=== PATIENT | male | born 1950 | race Caucasian/White ===

== ENCOUNTER → 2023-07-25 07:59 | Outpatient (REF) | payer MEDICARE, OTHER, SELFPAY ==
[2023-07-25 08:46] LABS: % Basophils 1.1 % (0-2); % Eosinophils 6.9 % (0-6); % Immature Granulocytes 0.5 % (0-0.5); % Lymphocytes 27.4 % (20.5-51.1); % Monocytes 9.5 % (1.7-9.3); % Neutrophils 54.6 % (42.2-75.2); Absolute Basophils 0.1 10^3/uL (0-0.2); Absolute Eosinophils 0.5 10^3/uL (0-0.7); Absolute Lymphocytes 1.8 10^3/uL (1.2-3.4); Absolute Monocytes 0.6 10^3/uL (0.1-0.6); Absolute Neutrophils 3.6 10^3/uL (1.4-6.5); Hematocrit 38.1 % (39.0-52.0); Hemoglobin 12.9 g/dL (13.0-18.0); Mean Corp Hgb Conc. 33.9 g/dL (33.0-37.0); Mean Corpuscular Hgb 29.5 pg (27.0-31.0); Mean Platelet Volume 10.3 fL (7.4-10.4); Nucleated Red Blood Cells % 0 % (-); Platelet Count 311 10^3/uL (130-400); Red Blood Cell Count 4.38 10^6/uL (4.70-6.10); White Blood Cell Count 6.5 10^3/uL (4.8-10.8)
[2023-07-25 17:42] LABS: Lyme Antibody Screen, EIA Negative (Negative)
== END ==
LOC: REG 07:59
PROVIDERS: ATTENDING PHYSICIAN Family Medicine; FAMILY PHYSICIAN Family Medicine
DX: A69.20 Lyme disease, unspecified (principal); R73.01 Impaired fasting glucose
CPT/HCPCS: 36415; 83036; 85025; 86618

== ENCOUNTER → 2023-07-29 07:07 | Outpatient (REF) | payer MEDICARE, OTHER, SELFPAY ==
[2023-07-29 08:53] LABS: Iron 132 ug/dl (49-181)
[2023-07-29 09:03] LABS: Percent Saturation 28 % (20-50); Total Iron Binding Capacity 458 ug/dl (261-462)
[2023-07-29 09:44] LABS: Folate 7.7 ng/ml (2.76-20)
== END ==
LOC: REG 07:07
PROVIDERS: ATTENDING PHYSICIAN Family Medicine
DX: D50.9 Iron deficiency anemia, unspecified (principal); E53.8 Deficiency of other specified B group vitamins
CPT/HCPCS: 36415; 82728; 82746; 83540; 83550

== ENCOUNTER 2023-08-14 06:30 | Day surgery (SDC) | payer MEDICARE, OTHER, SELFPAY ==
[2023-08-14] VITALS (18 sets, daily range): BP systolic 109–175; BP diastolic 54–89; BMI 27.1
[2023-08-14] MEDS: NSS 242 ML IV (07:10)
[2023-08-14] MEDS: LOW STRENGTH ASPIRIN 324 MG PO (07:11)
[2023-08-14 08:13] LABS: ALT (SGPT) 33 U/L (0-50); AST (SGOT) 42 U/L (17-59); Albumin 4.1 g/dl (3.5-5.0); Alkaline Phosphatase 89 U/L (38-126); Blood Urea Nitrogen 15 mg/dl (9-20); Carbon Dioxide 27 mmol/L (22-30); Chloride 105 mmol/L (98-107); Estimated Creatinine Clearance 63 ml/min; Glucose 104 mg/dl (70-99); Potassium 4.4 mmol/L (3.5-5.1); Sodium 136 mmol/L (135-145); Total Bilirubin 0.6 mg/dl (0.2-1.3); Total Protein 6.4 g/dl (6.3-8.2); eGFR > 60.00
[2023-08-14 08:59] LABS: ACT-LR - POC 223 Seconds (116-155)
[2023-08-14 09:09] LABS: ACT-LR - POC 263 Seconds (116-155)
[2023-08-14 09:29] LABS: ACT-LR - POC 284 Seconds (116-155)
--- NOTE | 2023-08-14 10:01 | ITS.CL.CATH ---
[employer] - Catheterization
Cardiac Catheterization
Procedure Report:
LEFT HEART CATHETERIZATION AND CORONARY INTERVENTION
Date of Procedure: August 14, 2023
Referring: Demarcus Kelly
PROCEDURES:
1. Left heart catheterization, coronary angiogram.
2. Ultrasound-guided access.
3. Successful IVUS guided percutaneous coronary intervention to diffuse 60 to 70% IFR positive mid LAD in-stent restenosis with a 2.5 x 38 mm Xience hallie point drug-eluting stent, postdilated using a 2.75 x 20 mm NC balloon at 18 era with an
excellent angiographic and IVUS based result.
4. Physiologic testing using IFR of mid LAD
INDICATION: [ ]
ACCESS: Right radial artery, 6 [place] sheath, under ultrasound guidance
HEMODYNAMICS : (mmHg)
AO (s/d) : 126/63, mean of 92
LV (s/d) : 135/4
LVEDP :18
CORONARY FINDINGS
DOMINANCE: Right
LEFT MAIN: The left main is a large-caliber vessel which gives rise to a left anterior descending artery on the left circumflex artery. There is minimal luminal irregularities.
LEFT ANTERIOR DESCENDING: The left anterior descending artery is a medium caliber vessel which gives rise to 3 major diagonal branches. The mid LAD stent has diffuse 50 to 60% stenosis which is IFR positive as noted below at 0.85. D2 has an ostial
70 to 80% stenosis with 40 to 50% stenosis in the proximal portion.
CIRCUMFLEX: The left circumflex artery is a medium caliber vessel which gives rise to 2 small to medium caliber obtuse marginal branches. There is minimal luminal irregularities.
RIGHT CORONARY ARTERY: The right coronary artery is a large-caliber, dominant vessel which gives rise to the right posterior descending artery and the right posterolateral system. There is diffuse up to 40-50% plaque in the mid RCA.
HEMODYNAMIC ASSESSMENT OF THE MID LAD WITH A [employer] VERRATA WIRE: The origin of the left coronary artery was cannulated with a 6 Fr EBU 3.5 guide catheter. Intravenous heparin was administered and the ACT was followed during the procedure. Two
hundred micrograms of intracoronary nitroglycerin was given through the guide catheter. A [employer] Verrata wire was advanced to the left main and normalized in the left main. The Verrata wire was then carefully manipulated across the stenosis in
the mid LAD with the iFR below the ischemic threshold serially measuring 0.85, 0.85 and 0.86. The Verrata wire was then pulled back to the left main where the Pd/Pa measured 1.0 confirming no baseline drift in pressure readings
CORONARY INTERVENTION: Decision was made to move forward with percutaneous intervention given positive IFR is likely cause of patient's ongoing exertional typical angina. Additional heparin was given to maintain a therapeutic ACT throughout the
case. The same Verrata wire was advanced back into the distal LAD. The mid LAD was predilated using a 2.5 x 20 mm semi-compliant balloon at 14 era with good expansion. The lesion was then stented using a 2.5 x 38 mm Xience [place] drug-eluting
stent and postdilated using a 2.75 x 20 mm NC balloon at 16 era distally and 18 era proximally with an excellent angiographic result. IVUS [place] eye catheter was then advanced which showed a well-expanded and well apposed stent with out evidence of
any stent edge dissections. Patient was loaded with 600 mg of Plavix at the end of the case. No acute complications were noted.
SEDATION: 102 minutes of procedural sedation was utilized. An independent medical delivery technician was present to assist with and help manage the patient's level of consciousness and physiologic status.
RADIATION SUMMARY: Fluoro Time (min): 13.9, Dose (mGy): 604.81, DAP (Gy.cm2) : 45.3
Closure Device: Vascular band over right radial artery, 11 cc of air
CONCLUSIONS
1. Successful IVUS guided percutaneous coronary intervention to diffuse 60 to 70% IFR positive mid LAD in-stent restenosis with a 2.5 x 38 mm Xience hallie point drug-eluting stent, postdilated using a 2.75 x 20 mm NC balloon at 18 era with an
excellent angiographic and IVUS based result.
2. Diffuse up to 40-50% stenosis in the mid RCA
3. Mildly elevated LVEDP
RECOMMENDATIONS
1. Uninterrupted dual antiplatelet therapy with daily baby aspirin and Plavix for at least 1 year, continue beta-mindy and high intensity statin.
2. Wean radial band per protocol.
3. We will add amlodipine 5 mg daily for better blood pressure control and as a second antianginal medication.
4. Aggressive management of cardiovascular risk factors.
5. Outpatient referral for cardiac rehab.
Copy to: Demarcus Kelly
Yvette Newton MD, FACC, [facility]
[2023-08-14] MEDS: NSS 1000 IV (10:26)
[2023-08-14] MEDS: TYLENOL 650 MG PO (10:32)
[2023-08-14] MEDS: NORVASC 5 MG PO (12:38)
--- NOTE | 2023-08-14 16:03 | W.PN.UPDATE ---
Update Note
Progress Note Update
Pt seen post LAD PCI. Radial cath site without ht/bleeding. OOB to bathroom. Post EKG SB 50s, no acute changes. Pt understands importance of uninterrupted DAPT w/asa, plavix. New start amdlodipine 5mg daily for better BP control. Stop omeprazole and
start protonix d/t interaction with plavix. Cardiac rehab consulted. Followup at [facility] arranged. Home today if cath site/tele remain stable.
== END 2023-08-14 16:00 | disposition home or self-care (01) ==
LOC: CATH 06:30
PROVIDERS: ATTENDING PHYSICIAN Internal Medicine Interventional Cardiology; FAMILY PHYSICIAN Family Medicine; OTHER PHYSICIAN Nuclear Medicine Nuclear Cardiology
DX: I25.118 Atherosclerotic heart disease of native coronary artery with other forms of angina pectoris (principal); Z79.02 Long term (current) use of antithrombotics/antiplatelets; Z79.82 Long term (current) use of aspirin; T82.855A Stenosis of coronary artery stent, initial encounter; Y83.9 Surgical procedure, unspecified as the cause of abnormal reaction of the patient, or of later complication, without mention of misadventure at the time of the procedure
CPT/HCPCS: 92978; 99152; 99153; 76937; 80053; 85347; 93005; 93458; 93571; C1725; C1753; C1769; C1874; C1894; C9600; Q9967

== ENCOUNTER → 2023-08-21 08:16 | Outpatient (REF) | payer MEDICARE, OTHER, SELFPAY ==
[2023-08-21 10:50] LABS: PSA, Total - Screen 3.95 ng/ml (0.0-4.0)
== END ==
LOC: REG 08:16
PROVIDERS: ATTENDING PHYSICIAN Family Medicine
DX: Z12.5 Encounter for screening for malignant neoplasm of prostate (principal)
CPT/HCPCS: 36415; G0103

== ENCOUNTER → 2024-01-09 08:47 | Outpatient (REF) | payer MEDICARE, OTHER, SELFPAY ==
[2024-01-09 10:35] LABS: % Basophils 0.7 % (0-2); % Eosinophils 2.5 % (0-6); % Immature Granulocytes 0.4 % (0-0.5); % Lymphocytes 16.9 % (20.5-51.1); % Monocytes 6.2 % (1.7-9.3); % Neutrophils 73.3 % (42.2-75.2); Absolute Basophils 0.1 10^3/uL (0-0.2); Absolute Eosinophils 0.2 10^3/uL (0-0.7); Absolute Lymphocytes 1.3 10^3/uL (1.2-3.4); Absolute Monocytes 0.5 10^3/uL (0.1-0.6); Absolute Neutrophils 5.5 10^3/uL (1.4-6.5); Hematocrit 38.5 % (39.0-52.0); Hemoglobin 13.3 g/dL (13.0-18.0); Mean Corp Hgb Conc. 34.5 g/dL (33.0-37.0); Mean Corpuscular Volume 89.7 fL (80.0-94.0); Mean Platelet Volume 10.9 fL (7.4-10.4); Nucleated Red Blood Cells % 0 % (-); Platelet Count 279 10^3/uL (130-400); Red Blood Cell Count 4.29 10^6/uL (4.70-6.10); Red Cell Dist. Width 12.8 % (11.5-14.5); White Blood Cell Count 7.6 10^3/uL (4.8-10.8)
[2024-01-09 11:15] LABS: ALT (SGPT) 31 U/L (0-50); AST (SGOT) 45 U/L (17-59); Albumin 4.5 g/dl (3.5-5.0); Alkaline Phosphatase 80 U/L (38-126); Blood Urea Nitrogen 11 mg/dl (9-20); Calcium 9.7 mg/dl (8.4-10.2); Carbon Dioxide 29 mmol/L (22-30); Chloride 102 mmol/L (98-107); Glucose 99 mg/dl (70-99); HDL Cholesterol 33 mg/dl; LDL Cholesterol, Calculated 107 mg/dl; Potassium 4.6 mmol/L (3.5-5.1); Sodium 138 mmol/L (135-145); Total Bilirubin 0.7 mg/dl (0.2-1.3); Total Cholesterol 197 mg/dl (50-199); Total Protein 6.7 g/dl (6.3-8.2); Triglyceride 288 mg/dl (10-149); Very Low Density Lipoprotein 57 mg/dl (0-30); eGFR > 60.00
[2024-01-09 11:41] LABS: PSA, Total - Diagnostic 4.74 ng/ml (0.0-4.0)
== END ==
LOC: REG 08:47
PROVIDERS: Nuclear Medicine Nuclear Cardiology; ATTENDING PHYSICIAN Advanced Practice Midwife; FAMILY PHYSICIAN Family Medicine
DX: D64.9 Anemia, unspecified (principal); I21.4 Non-ST elevation (NSTEMI) myocardial infarction; E78.2 Mixed hyperlipidemia; I25.10 Atherosclerotic heart disease of native coronary artery without angina pectoris; C61 Malignant neoplasm of prostate
CPT/HCPCS: 36415; 80053; 80061; 84153; 85025

== ENCOUNTER → 2024-02-18 06:40 | Outpatient (REF) | payer MEDICARE, OTHER, SELFPAY | LOC: RCS 06:40 | PROVIDERS: ATTENDING PHYSICIAN Nuclear Medicine Nuclear Cardiology; FAMILY PHYSICIAN Family Medicine | DX: I25.10 Atherosclerotic heart disease of native coronary artery without angina pectoris (principal) | CPT/HCPCS: 93306 ==

== ENCOUNTER → 2024-05-25 07:44 | Outpatient (REF) | payer MEDICARE, OTHER, SELFPAY ==
[2024-05-25 09:10] LABS: ALT (SGPT) 41 U/L (0-50); AST (SGOT) 47 U/L (17-59); Albumin 4.8 g/dl (3.5-5.0); Alkaline Phosphatase 86 U/L (38-126); Blood Urea Nitrogen 13 mg/dl (9-20); Calcium 9.6 mg/dl (8.4-10.2); Carbon Dioxide 33 mmol/L (22-30); Chloride 100 mmol/L (98-107); Glucose 103 mg/dl (70-99); HDL Cholesterol 45 mg/dl; LDL Cholesterol, Calculated 105 mg/dl; Potassium 4.5 mmol/L (3.5-5.1); Sodium 141 mmol/L (135-145); Total Bilirubin 0.7 mg/dl (0.2-1.3); Total Cholesterol 197 mg/dl (50-199); Total Protein 7.4 g/dl (6.3-8.2); Triglyceride 237 mg/dl (10-149); Very Low Density Lipoprotein 47 mg/dl (0-30); eGFR > 60.00
[2024-05-25 14:08] LABS: Glycohemoglobin (HgbA1c) 5.9 % (4.0-5.6)
== END ==
LOC: REG 07:44
PROVIDERS: ATTENDING PHYSICIAN Nuclear Medicine Nuclear Cardiology; FAMILY PHYSICIAN Family Medicine
DX: E78.00 Pure hypercholesterolemia, unspecified (principal); E78.5 Hyperlipidemia, unspecified; I25.10 Atherosclerotic heart disease of native coronary artery without angina pectoris; R73.09 Other abnormal glucose
CPT/HCPCS: 36415; 80053; 80061; 83036

== ENCOUNTER → 2024-08-20 07:55 | Outpatient (REF) | payer MEDICARE, OTHER, SELFPAY ==
[2024-08-20 10:37] LABS: PSA, Total - Diagnostic 4.93 ng/ml (0.0-4.0)
== END ==
LOC: REG 07:55
PROVIDERS: ATTENDING PHYSICIAN Advanced Practice Midwife; FAMILY PHYSICIAN Family Medicine
DX: C61 Malignant neoplasm of prostate (principal)
CPT/HCPCS: 36415; 84153

== ENCOUNTER → 2025-03-09 12:50 | Outpatient (REF) | payer MEDICARE, OTHER, SELFPAY ==
[2025-03-09 14:33] LABS: PSA, Total - Diagnostic 4.46 ng/ml (0.0-4.0)
== END ==
LOC: REG 12:50
PROVIDERS: ATTENDING PHYSICIAN Advanced Practice Midwife; FAMILY PHYSICIAN Family Medicine
DX: C61 Malignant neoplasm of prostate (principal)
CPT/HCPCS: 36415; 84153